=== PATIENT | female | born 1970 | race Caucasian/White ===

== ENCOUNTER 2020-05-22 08:57 | Emergency (ER) | payer MEDICAID ==
[~2020-05-22] VITALS: Ht 157.5 cm; Wt 54.8 kg
[~2020-05-22 08:57] MED LIST: BUTALB-APAP-CA1 EACH PO; KEPPRA1000 MG PO; LOPRESSOR25 MG PO
[2020-05-22 09:07] VITALS: Ht 157.5 cm; Wt 54.8 kg
[2020-05-22] MEDS ORDERED: SEROQUEL300 MG PO (09:26)
[2020-05-22] MEDS ORDERED: KLONOPIN1 MG PO (09:27)
[2020-05-22 10:06] LABS: BASOPHILS 0.7 % (0-2); EOSINOPHILS 3.8 % (0-7); HEMATOCRIT 30.7 % (36.0-48.0); HEMOGLOBIN 9.5 g/dL (12-16); IMMATURE GRANULOCYTES 0.3 % (0-5); LYMPHOCYTE ABS# 2.46 10x3/uL (1.18-3.74); MCH 26.5 pg (26.0-34.0); MCHC 30.9 g/dL (31.0-37.0); MCV 85.5 fL (80.0-100.0); MEAN PLATELET VOLUME 8.2 fL (7.4-10.4); MONOCYTES 8.9 % (2-11); NEUTROPHIL ABS# 3.43 10x3/uL (1.56-6.13); NEUTROPHILS 50.3 % (40-80); PLATELET COUNT 317 10x3/uL (130-400); RBC 3.59 10x6/uL (4.00-5.40); RDW 17.8 % (11.5-14.5); WBC 6.8 10x3/uL (4.8-10.8)
[2020-05-22 10:19] LABS: CALC OSMOLALITY 270 mosm/kg (275-300); CALCIUM 8.2 mg/dL (8.5-10.1); CARBON DIOXIDE 28.8 mmol/L (21.0-32.0); CHLORIDE - SERUM 104 mmol/L (98-107); CREATININE - SERUM 0.8 mg/dL (0.6-1.3); GLUCOSE 83 mg/dL (74-106); POTASSIUM - SERUM 4.3 mmol/L (3.5-5.1); SODIUM 137 mmol/L (136-145); UREA NITROGEN 7 mg/dL (7-18); eGFR NON AFRICAN AMERICAN 81 mL/min (90-120)
[2020-05-22 10:29] LABS: ALBUMIN 3.2 g/dL (3.4-5.0); ALKALINE PHOSPHATASE 55 U/L (30-120); ALT (SGPT) 13 U/L (10-68); AMYLASE - SERUM 58 U/L (25-115); BILIRUBIN - TOTAL 0.15 mg/dL (0.2-1.3); LIPASE 147 U/L (73-393); PROTEIN - SERUM 6.4 g/dL (6.4-8.2); TROPONIN-I < 0.017 ng/mL (0.000-0.060)
[2020-05-22 10:45] LABS: BACTERIA MODERATE HPF (NONE SEEN); BILIRUBIN NEGATIVE (NEGATIVE); KETONE NEGATIVE (NEGATIVE); NITRITE NEGATIVE (NEGATIVE); SQUAMOUS EPITHELIAL 0-5 HPF (0-4); UROBILINOGEN NORMAL mg/dL (< 2); WHITE CELLS - URINE RARE HPF (0-4)
[2020-05-22 12:17] LABS: HCG URINE NEGATIVE (NEGATIVE)
[2020-05-22 13:05] VITALS: BP 99/67
[2020-05-23 13:13] LABS: HEPATITIS C ANTIBODY >11.0 S/CO RAT (0.0-0.9)
== END 2020-05-22 13:08 | disposition home or self-care (01) ==
LOC: D.ER 08:57
PROVIDERS: Family Medicine
DX: N94.6 Dysmenorrhea, unspecified (principal); R10.9 Unspecified abdominal pain; D64.9 Anemia, unspecified